=== PATIENT | male | born 1980 | race Hispanic/Latino ===

== ENCOUNTER → 2025-08-27 | Outpatient (CLI) | payer OTHER ==
[2025-08-27] MEDS: REGADENOSON 0.4 MG/5 ML PF SYG IVP ONE (13:21)
== END | disposition home or self-care (01) ==
LOC: RAH 09:04
PROVIDERS: ATTEND Internal Medicine Cardiovascular Disease
DX: R06.09 Other forms of dyspnea (principal)
CPT/HCPCS: 78452; 93017; J2785; A9500 ×2